=== PATIENT | male | born 1960 | race Caucasian/White ===

== ENCOUNTER 2017-12-05 04:04 | Inpatient (IN) | payer BC, MEDICAID ==
[~2017-12-05] VITALS: Ht 177.8 cm; Wt 83.9 kg
[2017-12-05] MEDS ORDERED: NITROGLYCERIN 0.4 MG/TAB BOTTLE SL ONE ×2 (04:15→04:21)
[2017-12-05] MEDS ORDERED: ASPIRIN 325 MG TABLET PO ONE (04:15)
--- NOTE | 2017-12-05 04:15 | NUR ---
Dr. Rock at bedside for MSE.
--- NOTE | 2017-12-05 04:20 | NUR ---
Administered 325mg Aspirin and Nitroglycerin. Pt states pain on chest about 8/10, "feels like elephant sitting on chest". To recheck chestpain in 5 min.
[2017-12-05] MEDS ORDERED: ASPIRIN 325 MG TABLET ONE (04:21)
--- NOTE | 2017-12-05 04:25 | NUR ---
Pt states pain has decreased to 6/10 from 8/10. Administered another nitroglycerin.
--- NOTE | 2017-12-05 04:35 | NUR ---
Pt states pain still 6/10. Administered 3rd dose of Nitroglycerin.
--- NOTE | 2017-12-05 04:40 | NUR ---
Pt states pain still 6/10, after 3rd dose of nitroglycerin. MD notified.
--- NOTE | 2017-12-05 04:46 | NUR ---
Xray at bedside.
[2017-12-05 04:51] LABS: BASOPHILS # (AUTO) 0.1 K/uL (0.0-8.0); BASOPHILS % (AUTO) 0.6 % (0.0-2.0); EOSINOPHILS # (AUTO) 0.3 K/uL (0.0-0.7); EOSINOPHILS % (AUTO) 3.2 % (0.0-7.0); HEMOGLOBIN 14.3 g/dL (12.5-16.3); LYMPHOCYTES # (AUTO) 1.7 K/uL (20.0-40.0); LYMPHOCYTES % (AUTO) 17.6 % (20.5-51.5); MEAN CORPUSCULAR HGB CONC 35 g/dL (32.5-36.3); MEAN CORPUSCULAR VOLUME 89.1 fL (73.0-96.2); MONOCYTES # (AUTO) 0.7 K/uL (2.0-10.0); MONOCYTES % (AUTO) 6.9 % (0.0-11.0); NEUTROPHILS # (AUTO) 6.9 K/uL (1.8-8.9); NEUTROPHILS % (AUTO) 71.7 % (38.5-71.5); PLATELET COUNT (AUTO) 220 K/uL (152-348); WHITE BLOOD COUNT (AUTO) 9.6 K/uL (3.6-10.2)
[2017-12-05 04:55] LABS: CREATININE 1.3 mg/dL (0.6-1.3); POTASSIUM 4.1 mmol/L (3.5-5.1)
[2017-12-05] MEDS ORDERED: NITROGLYCERIN OINT 1 GM PACKET TP ONE ×2 (05:00→05:01)
--- NOTE | 2017-12-05 05:04 | NUR ---
Pt's blood pressure now 128/75, pt states pain decreased to about 5/10.
[2017-12-05 05:08] LABS: BILIRUBIN,DIRECT 0.1 mg/dL (0.0-0.2); BILIRUBIN,TOTAL 0.6 mg/dL (0.2-1.0); TOTAL PROTEIN, SERUM 7.2 g/dL (6.4-8.2)
--- NOTE | 2017-12-05 06:09 | NUR ---
Pt sleeping, snoring loudly, no acute signs of distress.
--- NOTE | 2017-12-05 07:10 | NUR ---
Passed report to Shanti HUERTA.
--- NOTE | 2017-12-05 07:19 | NUR ---
ROM Braun is at bedside evaluating patient.
--- NOTE | 2017-12-05 08:18 | NUR ---
Patient is resting comfortably in bed with eyes closed, PATIENT IS PAIN FREE AT THIS TIME.
[2017-12-05 09:30] VITALS: BP 127/77
[2017-12-05] MEDS ORDERED: IV NS 1000 ML 1,000 ML IV PRN (10:58)
[2017-12-05] MEDS ORDERED: ONDANSETRON 4 MG/2 ML VIAL IV PRN (11:00)
[2017-12-05] MEDS ORDERED: NITROGLYCERIN 0.4 MG/TAB BOTTLE SL PRN (11:00)
[2017-12-05] MEDS ORDERED: ACETAMINOPHEN 325 MG TABLET PO PRN (11:00)
[2017-12-05] MEDS ORDERED: ZOLPIDEM 5 MG TABLET PO PRN (11:00)
[2017-12-05] MEDS ORDERED: MORPHINE SULFATE 2 MG/1 ML DISP.SYRIN IV PRN (11:00)
[2017-12-05] MEDS ORDERED: HYDROCODONE/APAP 5-325MG TABLET PO PRN (11:00)
[2017-12-05] MEDS ORDERED: MORPHINE SULFATE 4 MG/1 ML DISP.SYRIN IV PRN (11:30)
[2017-12-05 12:00] VITALS: BP 126/70
--- NOTE | 2017-12-05 13:00 | NUR ---
SEEN AND EXAMINED BY DR FISHER WITH NEW ORDERS.
[2017-12-05 15:08] VITALS: BP 129/67
[2017-12-05] MEDS: CARVEDILOL 3.125 MG TABLET PO SCH (17:47)
[2017-12-05] MEDS ORDERED: RIVAROXABAN 10 MG TABLET PO SCH (18:00)
--- NOTE | 2017-12-05 18:00 | NUR ---
PT HAS BEEN SLEEPING ALL MORNING. NO APPARENT DISTRESS NOTED.
[2017-12-05 19:51] VITALS: BP 131/71
[2017-12-05] MEDS ORDERED: ATORVASTATIN 20 MG TABLET PO SCH (21:00)
[2017-12-06 03:58] VITALS: BP 120/64
[2017-12-06 04:04] VITALS: BP 136/84
[2017-12-06 06:59] LABS: CREATININE 1.1 mg/dL (0.6-1.3); MAGNESIUM 2.1 mg/dL (1.8-2.4); PHOSPHOROUS 3.5 mg/dL (2.5-4.9); POTASSIUM 3.7 mmol/L (3.5-5.1)
[2017-12-06] MEDS ORDERED: PANTOPRAZOLE SODIUM 40 MG TABLET.DR PO SCH (07:00)
--- NOTE | 2017-12-06 07:15 | NUR ---
No report of chest pain throughout the night. Fed & all needs provided, kept comfortable. IVF maintained. Vital signs are stable.
[2017-12-06 07:22] LABS: EOSINOPHILS # (AUTO) 0.4 K/uL (0.0-0.7)
[2017-12-06 07:45] LABS: BASOPHILS # (AUTO) 0.1 K/uL (0.0-8.0); BASOPHILS % (AUTO) 0.8 % (0.0-2.0); EOSINOPHILS % (AUTO) 5.7 % (0.0-7.0); HEMOGLOBIN 13.3 g/dL (12.5-16.3); LYMPHOCYTES # (AUTO) 1.7 K/uL (20.0-40.0); MEAN CORPUSCULAR HEMOGLOBIN 31.5 uug (23.8-33.4); MEAN CORPUSCULAR HGB CONC 35 g/dL (32.5-36.3); MEAN CORPUSCULAR VOLUME 89.7 fL (73.0-96.2); MONOCYTES # (AUTO) 0.7 K/uL (2.0-10.0); MONOCYTES % (AUTO) 9.3 % (0.0-11.0); NEUTROPHILS # (AUTO) 4.2 K/uL (1.8-8.9); NEUTROPHILS % (AUTO) 60.2 % (38.5-71.5); PLATELET COUNT (AUTO) 197 K/uL (152-348); RED BLOOD CELL COUNT(AUTO) 4.23 MIL/uL (4.06-5.63)
[2017-12-06] MEDS: CARVEDILOL 3.125 MG TABLET PO SCH (08:04)
[2017-12-06] MEDS ORDERED: ASPIRIN 81 MG TAB.CHEW PO SCH (09:00)
[2017-12-06] MEDS ORDERED: NICOTINE 21 MG/24HR PATCH TD SCH (09:00)
[2017-12-06 11:41] VITALS: BP 148/86
--- NOTE | 2017-12-06 12:52 | NUR ---
D/C ORDERS RECEIVED NOTED AND CARRIED OUT.D/C HEPLOCK PER MD ORDERS.D/C INSTRUCTION AND EDUCATION GIVEN TO THE PT,PT VERBALIZED UNDERSTANDING ALL THE INSTRUCTION,PT WILL FOLLOW UP WITH HIS DR .PT LEFT THE FACILITY VIA WALKING FRON THE HOSPITAL IN STABLE CONDITION AND IN PROPER CLOTHING
== END 2017-12-06 12:50 | disposition home or self-care (01) | DRG 203 ==
LOC: ER 04:05 → EDBD 04:05 → TELE 09:11 → MED 19:13
PROVIDERS: ADMIT Nurse Practitioner Acute Care; ATTEND Nurse Practitioner Acute Care
DX: M94.0 Chondrocostal junction syndrome [Tietze] (principal); N17.0 Acute kidney failure with tubular necrosis; I48.4 Atypical atrial flutter; I11.0 Hypertensive heart disease with heart failure; I50.32 Chronic diastolic (congestive) heart failure; E86.0 Dehydration; I48.0 Paroxysmal atrial fibrillation; F17.210 Nicotine dependence, cigarettes, uncomplicated; Z91.14 Patient's other noncompliance with medication regimen; F14.90 Cocaine use, unspecified, uncomplicated; I25.10 Atherosclerotic heart disease of native coronary artery without angina pectoris; F15.90 Other stimulant use, unspecified, uncomplicated; I34.0 Nonrheumatic mitral (valve) insufficiency
CPT/HCPCS: 36415; 70030-TC; 71045; 83735; 84100; 85025; 85730; 93005; A4663; J7030

== ENCOUNTER 2018-01-13 03:24 | Inpatient (IN) | payer MEDICAID ==
[~2018-01-13] VITALS: Ht 177.8 cm; Wt 82.6 kg
[2018-01-13] MEDS ORDERED: ONDANSETRON 4 MG/2 ML VIAL IV ONE (04:00)
[2018-01-13] MEDS ORDERED: IV NORMAL SALINE 1000 ML BAG IV ONE (04:00)
[2018-01-13 04:18] LABS: BASOPHILS % (AUTO) 0.3 % (0.0-2.0); EOSINOPHILS # (AUTO) 0.1 K/uL (0.0-0.7); EOSINOPHILS % (AUTO) 1.3 % (0.0-7.0); HEMATOCRIT 39.4 % (36.7-47.1); HEMOGLOBIN 13.7 g/dL (12.5-16.3); LYMPHOCYTES # (AUTO) 1.2 K/uL (20.0-40.0); LYMPHOCYTES % (AUTO) 14.1 % (20.5-51.5); MEAN CORPUSCULAR HGB CONC 35 g/dL (32.5-36.3); MEAN CORPUSCULAR VOLUME 89.1 fL (73.0-96.2); MONOCYTES # (AUTO) 0.7 K/uL (2.0-10.0); MONOCYTES % (AUTO) 8.1 % (0.0-11.0); NEUTROPHILS # (AUTO) 6.3 K/uL (1.8-8.9); NEUTROPHILS % (AUTO) 76.2 % (38.5-71.5); PLATELET COUNT (AUTO) 238 K/uL (152-348); RED BLOOD CELL COUNT(AUTO) 4.42 MIL/uL (4.06-5.63); WHITE BLOOD COUNT (AUTO) 8.3 K/uL (3.6-10.2)
[2018-01-13] MEDS ORDERED: ONDANSETRON 4 MG/2 ML VIAL ONE (04:29)
[2018-01-13 04:30] LABS: BILIRUBIN,DIRECT 0.1 mg/dL (0.0-0.2); BILIRUBIN,TOTAL 0.6 mg/dL (0.2-1.0); CREATININE 1.3 mg/dL (0.6-1.3); TOTAL PROTEIN, SERUM 6.9 g/dL (6.4-8.2)
[2018-01-13] MEDS ORDERED: IV D5 1/2 NS 1000 ML 1,000 ML IV PRN (06:04)
[2018-01-13] MEDS ORDERED: Z GUARD REMEDY PASTE 57 GM TUBE TOP PRN (06:15)
[2018-01-13] MEDS ORDERED: HYDROCODONE/APAP 5-325MG TABLET PO PRN (06:15)
[2018-01-13] MEDS ORDERED: ONDANSETRON 4 MG/2 ML VIAL IV PRN (06:15)
[2018-01-13] MEDS ORDERED: MORPHINE SULFATE 2 MG/1 ML DISP.SYRIN IV PRN (06:15)
[2018-01-13] MEDS ORDERED: MAGNESIUM HYDROXIDE 30 ML LIQUID UDC PO PRN (06:15)
[2018-01-13] MEDS ORDERED: HYDROCODONE/APAP 10-325 MG TABLET PO PRN (06:15)
[2018-01-13] MEDS ORDERED: ACETAMINOPHEN 325 MG TABLET PO PRN (06:15)
[2018-01-13] MEDS ORDERED: PANTOPRAZOLE SODIUM 40 MG VIAL IV SCH (09:00)
[2018-01-13 10:37] LABS: *BILIRUBIN,URIN NEGATIVE (NEGATIVE); *BLOOD, URINE NEGATIVE (NEGATIVE); *CLARITY,URINE CLEAR (CLEAR); *COLOR,URINE YELLOW (YELLOW); *KETONES,URINE NEGATIVE (NEGATIVE); *PROTEIN,URINE NEGATIVE (NEGATIVE); *UROBILINOGEN,URINE 0.2 E.U./dl (NORMAL); LEUKOCYTE ESTERASE ,URINE NEGATIVE (NEGATIVE); NITRITE, URINE NEGATIVE (NEGATIVE); PH,URINE 6.5 (5.0-8.0); UGLUCOSE NEGATIVE (NEGATIVE)
[2018-01-13 10:41] LABS: BACTERIA,URINE FEW /HPF (NONE SEEN); SQUAMOUS EPITHELIAL CELL,UR FEW /HPF (NONE SEEN); WBC,URINE 0-3 /HPF (0-3)
[2018-01-13 10:42] LABS: MUCUS,URINE FEW /LPF (0-FEW); RBC,URINE NONE SEEN /HPF (0-3)
[2018-01-13 11:29] VITALS: BP 149/72
[2018-01-13] MEDS: IV NS 1000 ML 1,000 ML IV PRN ×2 (12:06→20:30)
[2018-01-13 15:20] VITALS: BP 126/70
[2018-01-13] MEDS: MORPHINE SULFATE 4 MG/1 ML DISP.SYRIN IV PRN ×2 (18:57→23:58)
[2018-01-13 19:00] VITALS: BP 133/74
[2018-01-13] MEDS: DOCUSATE SODIUM 100 MG CAPSULE PO SCH (20:29)
[2018-01-13 23:47] VITALS: BP 130/72
[2018-01-13] MEDS: ZOLPIDEM 5 MG TABLET PO PRN (23:53)
[2018-01-14 04:29] VITALS: BP 139/80
[2018-01-14] MEDS: IV NS 1000 ML 1,000 ML IV PRN (06:08)
[2018-01-14 07:14] LABS: BASOPHILS # (AUTO) 0.1 K/uL (0.0-8.0); BASOPHILS % (AUTO) 0.6 % (0.0-2.0); EOSINOPHILS # (AUTO) 0.4 K/uL (0.0-0.7); EOSINOPHILS % (AUTO) 5.1 % (0.0-7.0); HEMATOCRIT 36.3 % (36.7-47.1); HEMOGLOBIN 12.5 g/dL (12.5-16.3); LYMPHOCYTES # (AUTO) 1.9 K/uL (20.0-40.0); LYMPHOCYTES % (AUTO) 23.8 % (20.5-51.5); MEAN CORPUSCULAR HEMOGLOBIN 31.1 uug (23.8-33.4); MEAN CORPUSCULAR HGB CONC 35 g/dL (32.5-36.3); MONOCYTES # (AUTO) 0.5 K/uL (2.0-10.0); MONOCYTES % (AUTO) 6.3 % (0.0-11.0); NEUTROPHILS # (AUTO) 5.1 K/uL (1.8-8.9); NEUTROPHILS % (AUTO) 64.2 % (38.5-71.5); PLATELET COUNT (AUTO) 195 K/uL (152-348); RED BLOOD CELL COUNT(AUTO) 4.03 MIL/uL (4.06-5.63); WHITE BLOOD COUNT (AUTO) 7.9 K/uL (3.6-10.2)
[2018-01-14 07:25] LABS: CREATININE 1.1 mg/dL (0.6-1.3); MAGNESIUM 1.8 mg/dL (1.8-2.4); PHOSPHOROUS 2.9 mg/dL (2.5-4.9); POTASSIUM 3.8 mmol/L (3.5-5.1)
[2018-01-14 07:49] LABS: THYROID STIMULATING HORMONE 1.556 mIU/mL (0.358-3.740)
[2018-01-14] MEDS: MORPHINE SULFATE 4 MG/1 ML DISP.SYRIN IV PRN ×3 (08:37→21:12)
[2018-01-14 11:57] VITALS: BP 134/79
[2018-01-14 15:51] VITALS: BP 147/82
[2018-01-14 20:00] VITALS: BP 161/92
[2018-01-14] MEDS: DOCUSATE SODIUM 100 MG CAPSULE PO SCH (21:07)
[2018-01-14] MEDS: ZOLPIDEM 5 MG TABLET PO PRN (22:52)
[2018-01-14] MEDS ORDERED: CLONIDINE HCL 0.1 MG TABLET PO PRN (23:00)
[2018-01-14] MEDS: AMLODIPINE 5 MG TABLET PO SCH (23:43)
[2018-01-15 04:00] VITALS: BP 157/85
[2018-01-15] MEDS: AMLODIPINE 5 MG TABLET PO SCH (08:30)
[2018-01-15] MEDS: MORPHINE SULFATE 4 MG/1 ML DISP.SYRIN IV PRN ×2 (09:18→19:56)
[2018-01-15 11:30] VITALS: BP 161/81
[2018-01-15 15:06] VITALS: BP 156/87
[2018-01-15] MEDS ORDERED: hydrALAZINE HCL 25 MG TABLET PO PRN (17:00)
[2018-01-15 19:00] VITALS: BP 147/76
[2018-01-15] MEDS: DOCUSATE SODIUM 100 MG CAPSULE PO SCH (19:58)
[2018-01-15] MEDS: ATORVASTATIN 20 MG TABLET PO SCH (19:58)
[2018-01-15] MEDS: ZOLPIDEM 5 MG TABLET PO PRN (22:25)
[2018-01-16 04:00] VITALS: BP 157/92
[2018-01-16] MEDS ORDERED: AMLODIPINE 5 MG TABLET PO SCH (09:00)
[2018-01-16] MEDS: AMLODIPINE 10 MG TABLET PO SCH (09:38)
[2018-01-16] MEDS: MORPHINE SULFATE 4 MG/1 ML DISP.SYRIN IV PRN ×2 (11:48→21:22)
[2018-01-16 12:03] VITALS: BP 150/85
[2018-01-16 16:03] VITALS: BP 150/93
[2018-01-16 20:00] VITALS: BP 146/76
[2018-01-16] MEDS: ATORVASTATIN 20 MG TABLET PO SCH (20:11)
[2018-01-16] MEDS: DOCUSATE SODIUM 100 MG CAPSULE PO SCH (20:11)
[2018-01-16] MEDS: ZOLPIDEM 5 MG TABLET PO PRN (23:07)
[2018-01-17] MEDS ORDERED: IV D5/ 0.9% NACL 1,000 ML IV PRN
[2018-01-17 04:00] VITALS: BP 153/90
[2018-01-17] MEDS: AMLODIPINE 10 MG TABLET PO SCH (08:23)
[2018-01-17] MEDS ORDERED: POLYMYXIN B SULFATE 500,000 UNITS, BACITRACIN 50,000 UNITS, NORMAL SALINE 20 ML MC ONE ×3 (10:45)
[2018-01-17 11:43] VITALS: BP 150/88
[2018-01-17] MEDS ORDERED: ENOXAPARIN SODIUM 30 MG/0.3 ML DISP.SYRIN SUBCUT SCH (12:00)
[2018-01-17] MEDS ORDERED: CEFAZOLIN 1 G VIAL MC ONE (12:03)
[2018-01-17] MEDS ORDERED: DESFLURANE ANESTHESIA GAS 240 ML BOTTLE IH ONE (12:03)
[2018-01-17] MEDS ORDERED: GLYCOPYRROLATE 0.2 MG/ML VIAL MC ONE (12:03)
[2018-01-17] MEDS ORDERED: IV LACTATED RINGERS SOLUTION 1,000 ML BAG IV ONE (12:03)
[2018-01-17] MEDS ORDERED: NEOSTIGMINE METHYLSULFATE 10 MG/10 ML VIAL IV ONE (12:03)
[2018-01-17] MEDS ORDERED: PROPOFOL 200 MG/20 ML BOTTLE IV ONE (12:03)
[2018-01-17] MEDS ORDERED: LIDOCAINE HCL 2% 20 ML VIAL MC ONE (12:03)
[2018-01-17] MEDS ORDERED: ONDANSETRON 4 MG/2 ML VIAL IV ONE (12:03)
[2018-01-17] MEDS ORDERED: DEXAMETHASONE SOD PHOSPHATE 4 MG INJ IV ONE (12:03)
[2018-01-17] MEDS ORDERED: MORPHINE SULFATE 4 MG/1 ML DISP.SYRIN ONE (14:44)
[2018-01-17] MEDS ORDERED: MIDAZOLAM HCL 2 MG/2 ML VIAL ONE (14:44)
[2018-01-17] MEDS ORDERED: ROCURONIUM BROMIDE 50 MG/5 ML VIAL ONE (14:45)
[2018-01-17] MEDS ORDERED: VANCOMYCIN 1000 MG VIAL ONE (16:12)
[2018-01-17] MEDS ORDERED: FENTANYL CITRATE 100 MCG/2 ML AMPUL ONE (16:59)
[2018-01-17] MEDS ORDERED: HYDROMORPHONE 2 MG/1 ML DISP.SYRIN ONE (17:14)
[2018-01-17] MEDS ORDERED: ONDANSETRON 4 MG/2 ML VIAL ONE (17:37)
[2018-01-17 18:16] VITALS: BP 139/77
[2018-01-17] MEDS: IV D5W-0.45% NS +20 KCL 1,000 ML IV PRN (19:57)
[2018-01-17] MEDS: MORPHINE SULFATE 4 MG/1 ML DISP.SYRIN IV PRN ×2 (19:58→23:56)
[2018-01-17 20:00] VITALS: BP 118/77
[2018-01-17] MEDS: ATORVASTATIN 20 MG TABLET PO SCH (20:28)
[2018-01-17] MEDS: DOCUSATE SODIUM 100 MG CAPSULE PO SCH (20:28)
[2018-01-17] MEDS: CEFAZOLIN 1 G in PREMIXED 1 EACH IV SCH (22:43)
[2018-01-18] VITALS: BP 124/77
[2018-01-18 04:00] VITALS: BP 130/88
[2018-01-18] MEDS: MORPHINE SULFATE 4 MG/1 ML DISP.SYRIN IV PRN ×7 (04:39→22:10)
[2018-01-18] MEDS: CEFAZOLIN 1 G in PREMIXED 1 EACH IV SCH (06:05)
[2018-01-18 06:06] LABS: HEMATOCRIT 33.6 % (36.7-47.1); HEMOGLOBIN 11.8 g/dL (12.5-16.3)
[2018-01-18] MEDS: AMLODIPINE 10 MG TABLET PO SCH (08:49)
[2018-01-18 11:27] VITALS: BP 117/65
[2018-01-18] MEDS: ENOXAPARIN SODIUM 30 MG/0.3 ML DISP.SYRIN SUBCUT SCH (12:18)
[2018-01-18] MEDS: IV D5W-0.45% NS +20 KCL 1,000 ML IV PRN (14:42)
[2018-01-18 15:25] VITALS: BP 134/70
[2018-01-18 20:00] VITALS: BP 135/70
[2018-01-18] MEDS: ATORVASTATIN 20 MG TABLET PO SCH (20:00)
[2018-01-18] MEDS: DOCUSATE SODIUM 100 MG CAPSULE PO SCH (20:00)
[2018-01-18] MEDS: ZOLPIDEM 5 MG TABLET PO PRN (23:02)
[2018-01-19] MEDS: ENOXAPARIN SODIUM 30 MG/0.3 ML DISP.SYRIN SUBCUT SCH ×2 (00:40→11:24)
[2018-01-19] MEDS: MORPHINE SULFATE 4 MG/1 ML DISP.SYRIN IV PRN ×5 (01:04→11:23)
[2018-01-19] MEDS: IV D5W-0.45% NS +20 KCL 1,000 ML IV PRN (04:03)
[2018-01-19 04:31] VITALS: BP 122/68
[2018-01-19] MEDS ORDERED: PANTOPRAZOLE SODIUM 40 MG TABLET.DR PO SCH (07:00)
[2018-01-19] MEDS: AMLODIPINE 10 MG TABLET PO SCH (09:12)
[2018-01-19] MEDS ORDERED: HYDR25TA86 PO (11:34)
[2018-01-19] MEDS ORDERED: RIVA20TA PO (11:34)
[2018-01-19] MEDS ORDERED: HYDR-548 PO (11:34)
[2018-01-19] MEDS ORDERED: DOCU100C36 PO (11:34)
[2018-01-19] MEDS ORDERED: AMLO10TA2 PO (11:34)
[2018-01-19] MEDS ORDERED: HYDR-3326 PO (11:34)
[2018-01-19] MEDS ORDERED: ATOR20TA PO (11:34)
[2018-01-19 11:55] VITALS: BP 105/72
== END 2018-01-19 13:30 | DRG 950 ==
LOC: ER 03:26 → TELE 06:24 → MED 01-14 11:15
PROVIDERS: ADMIT Registered Nurse; ATTEND Nurse Practitioner Acute Care
PROC: 0SRB01Z Replacement of Left Hip Joint with Metal Synthetic Substitute, Open Approach (ICD-10-PCS; principal; 2018-01-17 13:30)
DX: G90.8 Other disorders of autonomic nervous system (principal); N17.0 Acute kidney failure with tubular necrosis; M16.12 Unilateral primary osteoarthritis, left hip; I11.0 Hypertensive heart disease with heart failure; I50.32 Chronic diastolic (congestive) heart failure; I42.9 Cardiomyopathy, unspecified; I48.0 Paroxysmal atrial fibrillation; K21.9 Gastro-esophageal reflux disease without esophagitis; F14.10 Cocaine abuse, uncomplicated; K40.20 Bilateral inguinal hernia, without obstruction or gangrene, not specified as recurrent; I25.10 Atherosclerotic heart disease of native coronary artery without angina pectoris; Z91.14 Patient's other noncompliance with medication regimen; F17.210 Nicotine dependence, cigarettes, uncomplicated; R29.6 Repeated falls; I34.0 Nonrheumatic mitral (valve) insufficiency; Z86.73 Personal history of transient ischemic attack (TIA), and cerebral infarction without residual deficits; W19.XXXA Unspecified fall, initial encounter; Y92.029 Unspecified place in mobile home as the place of occurrence of the external cause
CPT/HCPCS: 36415; 70030-TC; 70450; 71045; 72170; 72192; 76000; 83735; 84100; 84443; 85018; 85025; 85730; 93005; 93307; 93880; 97110; 97116; 97530; A4663; C9113; J0690; J1100; J1170; J1650; J2250; J2270; J2405; J2710; J3010; J3370; J3490; J7030; J7042; J7120

== ENCOUNTER 2018-01-19 14:18 | Inpatient (IN) | payer MEDICAID ==
[~2018-01-19] VITALS: Ht 177.8 cm; Wt 81.6 kg
[~2018-01-19 14:18] MED LIST: AMLO10TA2 PO; ATOR20TA PO; DOCU100C36 PO; HYDR-3326 PO; HYDR-548 PO; HYDR25TA86 PO; RIVA20TA PO
[2018-01-19] MEDS ORDERED: Z GUARD REMEDY PASTE 57 GM TUBE TOP PRN (14:30)
[2018-01-19] MEDS ORDERED: HYDROCODONE/APAP 5-325MG TABLET PO PRN (14:45)
[2018-01-19] MEDS ORDERED: HYDROCODONE/APAP 10-325 MG TABLET PO PRN (14:45)
[2018-01-19] MEDS ORDERED: hydrALAZINE HCL 25 MG TABLET PO PRN (14:45)
[2018-01-19] MEDS ORDERED: OXYCODONE HCL 20 MG TAB.SR.12H PO SCH (15:15)
[2018-01-19] MEDS ORDERED: HYDROMORPHONE HCL 2 MG TABLET PO PRN (15:15)
[2018-01-19] MEDS: OXYCODONE HCL 10 MG TAB.SR.12H PO SCH ×2 (16:18→21:10)
[2018-01-19] MEDS: HYDROMORPHONE HCL 2 MG TABLET PO PRN (16:18)
[2018-01-19] MEDS: PROMETHAZINE HCL 25 MG TABLET PO PRN (16:51)
[2018-01-19] MEDS: RIVAROXABAN 10 MG TABLET PO SCH (17:39)
--- NOTE | 2018-01-19 18:23 | NUR ---
Received patient from 2nd floor [facility] accompanied by RN nurse via wheelchair around 150pm, with diagnosis of left hip arthroplasty. not in distress. Complaint of severe pain. agitation noted. commanding the staff to give morphine via IV. MD josé notified and ordered oxycodone 10 mg every 8 hours and dilaudid every 4 hours PRN for pain. Patient has a history of alcohol and cocaine abuse. friend/relative aware, talked to the patient and the patient agree and verbalize to take oral pain medication with anti nausea pills. refuse to take picture of left hip suture. Agree to take picture tomorrow AM. will endorse and continue monitor
[2018-01-19 19:46] VITALS: BP 129/69
[2018-01-19] MEDS: ATORVASTATIN 20 MG TABLET PO SCH (21:10)
[2018-01-19] MEDS: DOCUSATE SODIUM 100 MG CAPSULE PO SCH (21:10)
[2018-01-20] MEDS: ZOLPIDEM 5 MG TABLET PO PRN ×2 (01:35→22:35)
[2018-01-20 05:00] VITALS: BP 126/71
[2018-01-20] MEDS: OXYCODONE HCL 10 MG TAB.SR.12H PO SCH ×3 (06:16→21:18)
[2018-01-20 06:47] LABS: BASOPHILS % (AUTO) 0.4 % (0.0-2.0); EOSINOPHILS # (AUTO) 0.2 K/uL (0.0-0.7); LYMPHOCYTES # (AUTO) 1.4 K/uL (20.0-40.0); LYMPHOCYTES % (AUTO) 17.1 % (20.5-51.5); MEAN CORPUSCULAR HEMOGLOBIN 31.1 uug (23.8-33.4); MEAN CORPUSCULAR HGB CONC 35 g/dL (32.5-36.3); MEAN CORPUSCULAR VOLUME 89.5 fL (73.0-96.2); MONOCYTES # (AUTO) 0.9 K/uL (2.0-10.0); MONOCYTES % (AUTO) 11.5 % (0.0-11.0); NEUTROPHILS # (AUTO) 5.5 K/uL (1.8-8.9); RED BLOOD CELL COUNT(AUTO) 2.94 MIL/uL (4.06-5.63); WHITE BLOOD COUNT (AUTO) 8.2 K/uL (3.6-10.2)
[2018-01-20 06:55] LABS: CREATININE 1.1 mg/dL (0.6-1.3); PHOSPHOROUS 3.2 mg/dL (2.5-4.9); POTASSIUM 4.4 mmol/L (3.5-5.1)
[2018-01-20 07:00] LABS: HEMATOCRIT 26.3 % (36.7-47.1)
--- NOTE | 2018-01-20 07:00 | NUR ---
pt didn't have dinner tray last night, sandwich provided,pt got pain meds routine and get order for sleeping pill.no prn pain meds requested as pt slept well after ambien.remains bedrest until PT eval today. voiding well,vss,afebrile will continue to monitor.
[2018-01-20 07:01] LABS: HEMOGLOBIN 9.3 g/dL (12.5-16.3); PLATELET COUNT (AUTO) 171 K/uL (152-348)
[2018-01-20 08:40] VITALS: BP 142/69
--- NOTE | 2018-01-20 08:58 | NUR ---
pt seen on rounding. vitals stable. pt refused scheduled therapy. pt wanted to sleep will continue to monitor.
[2018-01-20] MEDS ORDERED: Medication Not On Formulary EA (Rivaroxaban (Xarelto) 1 TAB) PO SCH (09:00)
[2018-01-20] MEDS: AMLODIPINE 10 MG TABLET PO SCH (09:02)
[2018-01-20] MEDS: HYDROMORPHONE HCL 2 MG TABLET PO PRN ×2 (09:04→18:55)
[2018-01-20 15:00] VITALS: BP 129/63
[2018-01-20] MEDS: RIVAROXABAN 10 MG TABLET PO SCH (17:03)
[2018-01-20] MEDS: PROMETHAZINE HCL 25 MG TABLET PO PRN (18:55)
--- NOTE | 2018-01-20 20:00 | NUR ---
RECEIVED PATIENT AWAKE IN BED. A/O X4. NO C/O PAIN AT THIS TIME. SLIGHT DISCOMFORT, TOLERABLE /. PATIENT WAS PREVIOUSLY MEDICATED PER DAY SHIFT NURSE. ABDUCTION PILLOW IN PLACE. DRESSING NOTED TO LEFT HIP, C/D/I. NO RESP. DISTRESS NOTED. CALL LIGHT IN REACH. ALL NEEDS ATTENDED. WILL CONTINUE TO MONITOR AND ASSESS.
[2018-01-20] MEDS: ATORVASTATIN 20 MG TABLET PO SCH (21:18)
[2018-01-20] MEDS: DOCUSATE SODIUM 100 MG CAPSULE PO SCH (21:18)
[2018-01-20 21:49] VITALS: BP 127/73
[2018-01-21] MEDS: PROMETHAZINE HCL 25 MG TABLET PO PRN ×2 (05:12→20:11)
[2018-01-21] MEDS: HYDROMORPHONE HCL 2 MG TABLET PO PRN ×2 (05:12→20:14)
--- NOTE | 2018-01-21 05:15 | NUR ---
PATIENT AWAKE IN BED, STATING HE WOKE UP IN PAIN IN LEFT HIP, 03/01. VS WNL. PATIENT GIVEN DILAUDID 2MG PO PRN FOR PAIN AND PHENERGAN 25MG PO PRN FOR NAUSEA. WILL CONTINUE TO MONITOR AND ASSESS.
[2018-01-21] MEDS: OXYCODONE HCL 10 MG TAB.SR.12H PO SCH ×3 (06:29→22:46)
--- NOTE | 2018-01-21 06:42 | NUR ---
PATIENT ASLEEP IN BED, EASILY AROUSABLE. OFFERED AM CARE. PATIENT DOES NOT WANT IT DONE AT THIS TIME. PATIENT WANTS TO SLEEP. INFORMED PATIENT THAT PT IS SCHEDULED FOR 8AM. PATIENT IS ASKING TO PLEASE HAVE PT COME AT A LATER TIME. WILL ENDORSE TO AM NURSE. WILL CONTINUE TO MONITOR, ALL NEEDS ATTENDED.
[2018-01-21 07:01] VITALS: BP 121/68
[2018-01-21 08:04] VITALS: BP 121/73
[2018-01-21] MEDS: AMLODIPINE 10 MG TABLET PO SCH (09:06)
--- NOTE | 2018-01-21 10:30 | NUR ---
Patient resting in bed with eyes closed, states already received pain medication, no signs of distress noted, call light in reach, bed locked and in lowest position, took AM medication, all needs met at this time
[2018-01-21] MEDS: RIVAROXABAN 10 MG TABLET PO SCH (17:38)
[2018-01-21] MEDS ORDERED: TRIAMCINOLONE ACETONIDE 40 MG/1 ML VIAL IJ ONE (17:45)
[2018-01-21] MEDS ORDERED: LIDOCAINE HCL 1% 20 ML VIAL IJ ONE (17:45)
[2018-01-21] MEDS ORDERED: LIDOCAINE HCL 1% 20 ML VIAL IJ PRN (17:45)
[2018-01-21 19:30] VITALS: BP 112/73
[2018-01-21] MEDS: DOCUSATE SODIUM 100 MG CAPSULE PO SCH (22:45)
[2018-01-21] MEDS: ATORVASTATIN 20 MG TABLET PO SCH (22:45)
[2018-01-21] MEDS: ZOLPIDEM 5 MG TABLET PO PRN (22:46)
--- NOTE | 2018-01-21 23:55 | NUR ---
Patient awake and in good mood after arrival to room and after receiving report from day shift nurse . Pt requested pain med at 1999 . Pt given Dilaudid and Phenergan for pain at a 10 / 10 . Reassessed pt one hour later and pain decreased to a 6 / 10 . Given pt meds at 2100 and at 2245 , pt given Ambien 10 mg for sleep. Pt reassessed at 2345 and not asleep yet . Turned off tv and given a snack.
[2018-01-22] MEDS: OXYCODONE HCL 10 MG TAB.SR.12H PO SCH ×3 (06:02→23:20)
--- NOTE | 2018-01-22 06:42 | NUR ---
Patient did not sleep well during shift , pt was asking for numerous things throughout the night , Pt received his scheduled pain med at 0600 , pain was a 7 / 10 .
--- NOTE | 2018-01-22 07:30 | NUR ---
Received patient asleep, easily aroused, alert and oriented with no SOB or distress.. All needs were attended and anticipated. safety precautions observed. Call light within reach. Encouraged to use call light whenever assistance is needed for safety. Will do hourly rounding. Will continue to monitor.
[2018-01-22 07:57] VITALS: BP 138/81
[2018-01-22] MEDS: HYDROMORPHONE HCL 2 MG TABLET PO PRN ×3 (08:54→21:31)
[2018-01-22] MEDS: AMLODIPINE 10 MG TABLET PO SCH (08:55)
--- NOTE | 2018-01-22 14:15 | NUR ---
patient is scheduled for Oxycontin 1400 but patient requested that he would take it at 1500.
[2018-01-22] MEDS: MIRALAX 17 GM POWD.PACK PO SCH (16:32)
[2018-01-22] MEDS: RIVAROXABAN 10 MG TABLET PO SCH (17:37)
--- NOTE | 2018-01-22 18:17 | NUR ---
End of shift report; patient alert and oriented x 4 able to make needs known remained stable throughout the shift with no acute changes noted. No LOC or changes in mentation noted. No SOB or distress. assessed and reassessed for pain, medicated with Dilaudid for pain control PRN as ordered and OxyContin as scheduled. On abduction pillow, wound care treatment done as ordered- tolerated well. No signs and symptoms of infection on the site noted. All needs were attended and anticipated. safety precautions observed, hourly rounding done, call light, telephone and urinal within reach at all times. Will endorse accordingly to incoming shift for continuity of care.
--- NOTE | 2018-01-22 19:10 | NUR ---
Received patient awake, watching TV at this time. Denies any pain/discomforts. Abduction pillow in placed. Left hip incision site clean and dry. No s/s of infection noted. Hip precaution maintained. Safety measures and fall precaution maintained. Continue care as planned.
[2018-01-22] MEDS: DOCUSATE SODIUM 100 MG CAPSULE PO SCH (21:31)
[2018-01-22] MEDS: ATORVASTATIN 10 MG TABLET PO SCH (21:31)
[2018-01-22 21:35] VITALS: BP 120/60
--- NOTE | 2018-01-22 21:37 | NUR ---
Patient reported that he have no BM x 5 days. Prune juice was given. Pt on Colace and Miralax. Instructed patient to increase oral fluid as tolerated unless contraindicated and high fiber diet intake. Will monitor.
--- NOTE | 2018-01-22 22:00 | NUR ---
Pt refused wound picture today. Will attempt to do again in Am or endorse to oncoming shift.
[2018-01-22] MEDS: ZOLPIDEM 5 MG TABLET PO PRN (23:20)
--- NOTE | 2018-01-23 03:30 | NUR ---
Medicated for pain as needed and ordered. Will monitor.
[2018-01-23] MEDS: HYDROMORPHONE HCL 2 MG TABLET PO PRN ×3 (03:31→19:55)
[2018-01-23] MEDS: OXYCODONE HCL 10 MG TAB.SR.12H PO SCH ×3 (06:24→21:21)
--- NOTE | 2018-01-23 07:32 | NUR ---
Patient noted resting in bed, arouses easily, no complaints of pain at this time, no signs of distress noted, abductor pillow in place, call lightin reach, bed locked and in lowest position, all needs met at this time
[2018-01-23 08:00] VITALS: BP 143/88
[2018-01-23] MEDS: MIRALAX 17 GM POWD.PACK PO SCH (08:44)
[2018-01-23] MEDS: AMLODIPINE 10 MG TABLET PO SCH (08:44)
[2018-01-23] MEDS: RIVAROXABAN 10 MG TABLET PO SCH (17:21)
[2018-01-23 19:33] VITALS: BP 122/68
[2018-01-23 20:36] VITALS: BP 147/83
[2018-01-23] MEDS: DOCUSATE SODIUM 100 MG CAPSULE PO SCH (21:21)
[2018-01-23] MEDS: ATORVASTATIN 10 MG TABLET PO SCH (21:21)
[2018-01-23] MEDS: ZOLPIDEM 5 MG TABLET PO PRN (22:42)
[2018-01-24] MEDS: OXYCODONE HCL 10 MG TAB.SR.12H PO SCH ×3 (05:53→22:24)
[2018-01-24] MEDS: HYDROMORPHONE HCL 2 MG TABLET PO PRN ×2 (06:35→19:56)
[2018-01-24 07:51] VITALS: BP 135/80
[2018-01-24] MEDS: AMLODIPINE 10 MG TABLET PO SCH (09:02)
[2018-01-24] MEDS: MIRALAX 17 GM POWD.PACK PO SCH (09:02)
[2018-01-24 15:48] VITALS: BP 138/76
[2018-01-24] MEDS ORDERED: BISACODYL 5 MG TABLET.DR PO PRN (16:45)
[2018-01-24] MEDS: RIVAROXABAN 10 MG TABLET PO SCH (17:28)
[2018-01-24 19:56] VITALS: BP 133/69
[2018-01-24] MEDS: ATORVASTATIN 10 MG TABLET PO SCH (22:23)
[2018-01-24] MEDS: DOCUSATE SODIUM 100 MG CAPSULE PO SCH (22:23)
[2018-01-25] MEDS: ZOLPIDEM 5 MG TABLET PO PRN ×2 (00:37→23:31)
[2018-01-25] MEDS: HYDROMORPHONE HCL 2 MG TABLET PO PRN ×4 (03:33→20:57)
[2018-01-25] MEDS: OXYCODONE HCL 10 MG TAB.SR.12H PO SCH ×3 (06:04→22:05)
[2018-01-25 06:58] VITALS: BP 137/77
[2018-01-25 08:11] VITALS: BP 136/81
[2018-01-25] MEDS: MIRALAX 17 GM POWD.PACK PO SCH (08:11)
[2018-01-25] MEDS: AMLODIPINE 10 MG TABLET PO SCH (08:12)
--- NOTE | 2018-01-25 09:39 | NUR ---
SBAR report received, board updated. Pt assessed, no acute distress. Pt c/o pain 8-9/10 resolves to a tolerable 4/10 pain level with RPN medication. Pt compliant with routine morning medication administration. Pt assisted to sit up for breakfast consumption. Bed in locked and lowest position with side rails up x2. Plan for today discussed. All comfort and safety needs attended to. Call light within reach. Will continue to monitor.
[2018-01-25] MEDS: RIVAROXABAN 10 MG TABLET PO SCH (17:43)
--- NOTE | 2018-01-25 18:06 | NUR ---
All comfort and safety needs promptly attended to throughout this shift. No change in Pt status. Pain of 8/10 reported, PRN pain medication administered as ordered. Ice pack provided. BMx1. Call light within reach. Will continue to monitor and endorse to oncoming night court magistrate.
--- NOTE | 2018-01-25 19:10 | NUR ---
Received patient awake and alert, able to verbalized needs. Denies pain at this time. Not in distress. Abduction pillow in placed. Hip precaution maintained. Dressing on left hip incision dry and intact. Continue care as planned.
[2018-01-25 20:27] VITALS: BP 157/80
[2018-01-25] MEDS: ATORVASTATIN 10 MG TABLET PO SCH (20:56)
[2018-01-25] MEDS: DOCUSATE SODIUM 100 MG CAPSULE PO SCH (20:56)
--- NOTE | 2018-01-25 21:00 | NUR ---
Medicated for complaint of left hip pain, will monitor.
[2018-01-26] MEDS: HYDROMORPHONE HCL 2 MG TABLET PO PRN ×5 (05:16→22:45)
[2018-01-26] MEDS: OXYCODONE HCL 10 MG TAB.SR.12H PO SCH ×3 (06:10→21:49)
--- NOTE | 2018-01-26 06:46 | NUR ---
Shift End Report: Vs stable. Medicated for pain as needed and ordered with relief. No s/s of adverse reaction noted from drugs. All needs attended and met. No s/s of incision site infection on left hip. Continue care as planned.
--- NOTE | 2018-01-26 07:28 | NUR ---
Received patient awake, alert and orientedx4. Continue on pain management with good effect. no complaint voiced during rounds. not in distress. will continue monitor
[2018-01-26 08:00] VITALS: BP 131/79
[2018-01-26] MEDS: MIRALAX 17 GM POWD.PACK PO SCH (08:42)
[2018-01-26] MEDS: AMLODIPINE 10 MG TABLET PO SCH (08:43)
[2018-01-26 16:00] VITALS: BP 133/71
[2018-01-26] MEDS: RIVAROXABAN 10 MG TABLET PO SCH (18:18)
--- NOTE | 2018-01-26 19:32 | NUR ---
Received patient awake, watching TV at this time, Patient requesting another dose of pain medication that he just got earlier claiming that it did not work yet. Explained to patient that he'll get it again once he is due and he did not argue. Will monitor pain management. Continue care as planned.
[2018-01-26 19:55] VITALS: BP 123/69
[2018-01-26] MEDS: ATORVASTATIN 10 MG TABLET PO SCH (20:19)
[2018-01-26] MEDS: DOCUSATE SODIUM 100 MG CAPSULE PO SCH (20:19)
[2018-01-26] MEDS: ZOLPIDEM 5 MG TABLET PO PRN (21:12)
[2018-01-27] MEDS: HYDROMORPHONE HCL 2 MG TABLET PO PRN ×4 (02:38→23:13)
[2018-01-27] MEDS: OXYCODONE HCL 10 MG TAB.SR.12H PO SCH ×3 (05:04→21:29)
[2018-01-27 05:08] VITALS: BP 133/79
--- NOTE | 2018-01-27 05:57 | NUR ---
Shift End Report: VS stable. Medicated for pain as needed with moderate effects. No s/s of adverse reaction noted from narcotic medications. No s/s of incision site infection noted, dry clean and steri strips intact. Hip precaution maintained. Abduction pillow in placed. Adequate po fluid intake noted. Voiding QS. All needs attended and met. Uneventful night. Continue care as planned.
--- NOTE | 2018-01-27 07:30 | NUR ---
Patient in bed, awake, alert, verbally responsive, not in any form of acute distress. He denies any pain or discomfort at this time. Call light placed within reach.
[2018-01-27 08:00] VITALS: BP 123/79
[2018-01-27] MEDS: MIRALAX 17 GM POWD.PACK PO SCH (08:39)
[2018-01-27] MEDS: AMLODIPINE 10 MG TABLET PO SCH (08:40)
--- NOTE | 2018-01-27 11:06 | NUR ---
Patient out of bed, ambulating with walker with physical therapist, not in distress. No complain at this time.
[2018-01-27 19:30] VITALS: BP 144/69
[2018-01-27] MEDS: RIVAROXABAN 10 MG TABLET PO SCH (19:42)
--- NOTE | 2018-01-27 20:30 | NUR ---
Received pt resting in bed. AAO x4. No acute distress noted. Pt to be discharged tomorrow. TMS placed in chart. Safety measures maintained. Call light and personal belongings within reach. Will continue to monitor.
[2018-01-27] MEDS: DOCUSATE SODIUM 100 MG CAPSULE PO SCH (21:28)
[2018-01-27] MEDS: ATORVASTATIN 10 MG TABLET PO SCH (21:28)
[2018-01-27] MEDS: ZOLPIDEM 5 MG TABLET PO PRN (23:13)
[2018-01-28] MEDS: HYDROMORPHONE HCL 2 MG TABLET PO PRN (04:51)
[2018-01-28] MEDS ORDERED: OXYCODONE HCL 10 MG TAB.SR.12H PO ONE (06:37)
[2018-01-28] MEDS: OXYCODONE HCL 10 MG TAB.SR.12H PO SCH ×2 (06:38→13:15)
[2018-01-28 06:47] VITALS: BP 137/72
[2018-01-28 08:19] VITALS: BP 155/80
[2018-01-28 09:57] VITALS: BP 155/80
[2018-01-28] MEDS: AMLODIPINE 10 MG TABLET PO SCH (09:57)
[2018-01-28] MEDS: MIRALAX 17 GM POWD.PACK PO SCH (09:57)
--- NOTE | 2018-01-28 15:45 | NUR ---
Discharge order received, paperwork and plan discussed, signed, and copies placed in chart. Pictures taken last night of wound incision. Belongings accounted for. VS WNL. No home medications to return. Rx discussed and provided to Pt. Transportation arranged and discussed with Pt and welfare case worker. Pt ID band removed. Pt safely escorted out of hospital via wheelchair and left via Taxi cab. Will remove Pt from system shortly.
--- NOTE | 2018-01-30 17:06 | NUR ---
INTERDISCIPLINARY TEAM CONFERENCE
== END 2018-01-28 16:30 | disposition home health service (06) | DRG 862 ==
LOC: EDBD
PROVIDERS: ADMIT Physical Medicine & Rehabilitation Pain Medicine; ATTEND Physical Medicine & Rehabilitation Pain Medicine
DX: Z47.1 Aftercare following joint replacement surgery (principal); I11.0 Hypertensive heart disease with heart failure; I50.32 Chronic diastolic (congestive) heart failure; I48.0 Paroxysmal atrial fibrillation; I25.10 Atherosclerotic heart disease of native coronary artery without angina pectoris; Z96.642 Presence of left artificial hip joint; D62 Acute posthemorrhagic anemia; E78.5 Hyperlipidemia, unspecified; F17.210 Nicotine dependence, cigarettes, uncomplicated; F14.10 Cocaine abuse, uncomplicated; I34.0 Nonrheumatic mitral (valve) insufficiency; K59.03 Drug induced constipation; T40.2X5A Adverse effect of other opioids, initial encounter; Y92.230 Patient room in hospital as the place of occurrence of the external cause; Z91.14 Patient's other noncompliance with medication regimen; M25.562 Pain in left knee; M25.511 Pain in right shoulder; Z91.81 History of falling; M75.91 Shoulder lesion, unspecified, right shoulder; S83.92XD Sprain of unspecified site of left knee, subsequent encounter; W19.XXXD Unspecified fall, subsequent encounter
CPT/HCPCS: 36415; 70030-TC; 73020; 73562; 83735; 84100; 85025; 97110; 97116; 97165; 97530; 97535; J3301; J3490; Q0169